=== PATIENT | female | born 1940 | race Caucasian/White ===

== ENCOUNTER 2022-11-17 19:00 | Emergency (ER) | payer MEDICARE, SELFPAY ==
[2022-11-17 19:16] VITALS: BP 215/85; PULSE 102; RESP 20; TEMP 36.9; O2SAT 98
--- NOTE | 2022-11-17 19:26 | ED.FALL ---
HPI - Fall General Stated Complaint: Injuries on right side from fall Time Seen by Provider: 11/17/22 19:14 History of Present Illness HPI Narrative: 82-year-old female presents with fall. Patient states 4 hours ago she was out on a slick porch doing the star and a high when gas knocked her down 3 steps landed on the right side of her face with early right wrist out reach and injured her right toe. Patient denies any loss of consciousness but has hematoma and bruising to right side of her face. Swelling and deformity to right wrist and bruising and swelling to 3rd toe on right foot. Patient also has an abrasion to her right upper shoulder Review of Systems Review of Systems: CONSTITUTIONAL: Denies fever, chills, or sweats. EYES: Denies visual changes, redness, or discharge. ENT: Denies rhinorrhea, congestion, sore throat, or otalgia. CARDIOVASCULAR: Denies chest pain, palpitations, or edema. RESPIRATORY: Denies cough or dyspnea. GASTROINTESTINAL: Denies abdominal pain, nausea, vomiting, or diarrhea. GENITOURINARY: Denies dysuria or hematuria. SKIN: Denies rash or itching. MUSCULOSKELETAL: Denies back pain, joint pain, or myalgia. NEUROLOGIC: Denies headache, numbness, or weakness. PSYCHIATRIC: Denies anxiety or depression. PMFSH Comments At time of signature, agree with nursing past medical, surgical, social and family history. There is no relevant family history pertinent to the presenting complaint Exam Narrative: GENERAL: Well-appearing, well-nourished, and in no acute distress. HEAD: Normocephalic, atraumatic. EYES: PERRLA and EOMI. ENT: Nares clear, no rhinorrhea or epistaxis. Mucous membranes moist. NECK: Supple. CHEST: Clear to auscultation. No respiratory distress. HEART: Regular rate and rhythm. No murmur heard. Normal peripheral pulses. ABDOMEN: Soft, nontender, nondistended, normal active bowel sounds. EXTREMITIES: Normal range of motion. No edema. HAND EXAM - Skin intact, no laceration, no swelling, no erythema, normal digit cascade with flexion of fingers, median nerve, ulnar nerve, radial nerve is intact. Normal sensation of each side of each finger, can perform `ok? sign, `cross over finger test of index and middle fingers? and `thumbs up? sign, normal thumb opposition, no scissoring. good capillary refill and radial pulse. normal flexion and extension of fingers and wrist. normal supination at wrist. Normal forearm and elbow exam. swelling and hemaotm to right wrist abrasion to upper right shoulder SKIN: Warm, dry, no rash. NEURO: No focal deficits. Alert and oriented x3. [place] Coma Scale Eye Opening: Spontaneous 4 Ranav Coma Scale Motor: Obeys Commands 6 [place] Coma Scale Verbal: Oriented 5 [place] Coma Scale Total 15 SPEECH IS CLEAR. NO LANGUAGE DEFICITS. CRANIAL NERVES: PUPILS EQUAL, ROUND, AND REACTIVE TO LIGHT. VISUAL TORRES FULL. EXTRA-OCULAR MOVEMENTS INTACT. NO NYSTAGMUS NOTED. FACIAL SENSATION INTACT TO LIGHT TOUCH. FACIAL MOVEMENT FULL AND SYMMETRIC. PALATE MIDLINE. TONGUE MIDLINE, MOVING EQUALLY IN BOTH DIRECTIONS. UVULA IS MIDLINE. SHOULDER SHRUG EQUAL ON BOTH SIDES. BILATERAL HAND GRASP 5/5. GAIT NORMAL. HEEL TO TOE AND TANDEM WALK NORMAL. FINGER TO NOSE NORMAL. NEG ROMBERG. avulsion injury to right index finger. Course Course Level of Care: Express Care Visit Vital Signs Vital signs: Vital Signs Temperature 36.9 C 11/17/22 19:16 Pulse Rate 102 H 11/17/22 19:16 Respiratory Rate 20 11/17/22 19:16 Blood Pressure 215/85 H 11/17/22 19:16 Pulse Oximetry 98 11/17/22 19:16 Oxygen Delivery Room Air 11/17/22 19:16 Temperature 36.9 C 11/17/22 19:16 Pulse Rate 102 H 11/17/22 19:16 Respiratory Rate 20 11/17/22 19:16 Blood Pressure 215/85 H 11/17/22 19:16 Pulse Oximetry 98 11/17/22 19:16 Oxygen Delivery Room Air 11/17/22 19:16 Please DONALDO schedule a followup visit with your personal physician for further evaluation and treatment. Including recheck a
== END 2022-11-17 19:30 | disposition short-term general hospital (02) ==
PROVIDERS: Emergency Provider Nurse Practitioner Family
DX: S09.90XA Unspecified injury of head, initial encounter (principal); M25.531 Pain in right wrist; S99.921A Unspecified injury of right foot, initial encounter; W10.9XXA Fall (on) (from) unspecified stairs and steps, initial encounter; I10 Essential (primary) hypertension
CPT/HCPCS: 99212; G0463